=== PATIENT | male | born 2000 | race Two or more races ===

== ENCOUNTER 2025-02-14 17:54 | Emergency (ER) | payer SELFPAY ==
[~2025-02-14] VITALS: Ht 172.7 cm; Wt 81.1 kg
[2025-02-14] MEDS: TETRACAINE HCL 0.5% OPTH(EYE) SOLN 4ML RIGHTEYE ONE (19:52)
[2025-02-14] MEDS: FLUORESCEIN SOD OPTH TEST STRIP RIGHTEYE ONE (19:52)
[2025-02-14 19:53] VITALS: BP 135/79; PULSE 79; RESP 16; TEMP 97.6; O2SAT 97
[2025-02-14] MEDS ORDERED: ERY05OO OP (19:53)
--- NOTE | 2025-02-14 19:54 | ED.PDOC ---
Eye-HPI HPI Comments 24-year-old male presents to ER with right eye complaint x1 day. Patient reports that he has been experiencing redness, right eye irritation and 3/10 pain to right eye since 3 p.m. this afternoon after he was doing yard work. Denies use of medications for current symptoms and presents to ER ambulatory, in no distress. Denies use of contacts/glasses, vision changes, skin changes, known foreign body going into eye or any further symptoms/complaints Chief Complaint: Eye Problem Time Seen by MD: 18:13 Primary Care Provider: UNKNOWN Reviewed Notes: Nurses Notes, Medications, Allergies Allergies: Coded Allergies: NO KNOWN ALLERGIES (Unverified , 02/14/25) Home Meds Active Scripts Erythromycin (Erythromycin) 5 Mg/Gm Oin, 1 MG OP 6XD for 7 Days, #1 OIN 0 Refills Prov:CARL WESLEY 02/14/25 Information Source: Patient Mode of Arrival: Ambulatory Past Medical History PAST MEDICAL HISTORY: Denies Surgical History: Denies all surgeries Family History Family History: Unknown Social History Smoker: Non-Smoker Alcohol: Denies ETOH Use Drugs: Denies Drug Use Lives In: Home Constitutional: denies: chills, diaphoresis, fatigue, fever, malaise, sweats, weakness, others EENTM: reports: others (As stated in HPI) Respiratory: denies: cough, hemoptysis, orthopnea, SOB at rest, shortness of breath, SOB with excertion, stridor, wheezing, others Cardiovascular: denies: chest pain, dizzy spells, diaphoresis, Dyspnea on exertion, edema, irregular heart beat, left arm pain, lightheadedness, palpitations, PND, syncope, others Gastrointestinal: denies: abdomen distended, abdominal pain, blood streaked bowels, constipated, diarrhea, dysphagia, difficulty swallowing, hematemesis, melena, nausea, poor appetite, poor fluid intake, rectal bleeding, rectal pain, vomiting, others Genitourinary: denies: burning, dysuria, flank pain, frequency, hematuria, incontinence, penile discharge, penile sore, pain, testicle pain, testicle swelling, urgency, others Neurological: denies: dizziness, fainting, headache, left sided numbness, left sided weakness, numbness, paresthesia, pre-existing deficit, right sided numbness, right sided weakness, seizure, speech problems, tingling, tremors, weakness, others Musculoskeletal: denies: back pain, gout, joint pain, joint swelling, muscle pain, muscle stiffness, neck pain, others Integumetry: denies: bruises, change in color, change in hair/nails, dryness, laceration, lesions, lumps, rash, wounds, others Allergic/Immunocompromised: denies: Difficulty Healing, Frequent Infections, Hives, Itching, others Hematologic/Lymphatic: denies: anemia, blood clots, easy bleeding, easy bruising, swollen glands, others Endocrine: denies: excessive hunger, excessive sweating, excessive thirst, excessive urination, flushing, intolerance to cold, intolerance to heat, unexplained weight gain, unexplained weight loss, others Psychiatric: denies: anxiety, bipolar disorder, depression, hopeless, panic disorder, schizophrenia, sleepless, suicidal, others Physical Exam General Appearance: No Apparent Distress HEENT: PERRL/EOMI, Pharynx Normal, TMs Normal, Other (Wood's lamp examination right eye-subconjunctival injection and small corneal abrasion noted, no foreign body/drainage noted. No skin changes to right upper/lower eyelid noted.) Neck: Full Range of Motion, Non-Tender, Normal Respiratory: Chest Non-Tender, Lungs Clear, No Accessory Muscle Use, No Respiratory Distress, Normal Breath Sounds Cardiovascular: No Murmur, No Gallop, Regular Rate/Rhythm Breast Exam: Deferred Gastrointestinal: NOT DONE Genitalia: Deferred Pelvic: Deferred Rectal: Deferred Extremities: Normal capillary refill, Normal range of motion Neurologic: Alert, warehouse pricing and inventory clerk II-XII nml as Tested, No Motor Deficits, Normal Affect, Normal Mood, No Sensory Deficits Cerebellar Function: Normal Reflexes: Normal Skin: Dry, Normal Color, Warm Lymphatic: No Adenopathy Was a procedure done? Was a procedure done?: No Sedation Sedation?: No EENT DIFF Eye: Foreign Body-Corneal, Foreign Body-Lid, Globe Rupture, Orbital Cellulits, Periorbital Cellulits X-Ray, Labs, Meds, VS Vital Signs Date Time Temp Pulse Resp B/P (MAP) Pulse Ox O2 Delivery O2 Flow Rate FiO2 02/14/25 19:53 97.6 79 16 135/79 (97) 97 97.6 02/14/25 19:53 Room Air* 0 21 02/14/25 17:57 97.6 79 16 135/79 97 97.6 Current Medications Medications (Trade) Dose Ordered Sig/Padilla Route Start Time Stop Time Status Last Admin Tetracaine HCl (Tetracaine 0.5% Opth Soln) 1 drop ONCE ONCE RIGHTEYE 02/14/25 20:00 02/14/25 20:01 DC 02/14/25 19:52 Fluorescein Sodium (Ful-Preeti) 1 mg ONCE ONCE RIGHTEYE 02/14/25 20:00 02/14/25 20:01 DC 02/14/25 19:52 Fluorescein ophthalmic ordered Tetracaine ophthalmic ordered Advised to follow up with Ophthalmology in 3-4 days if symptoms do not improve Advised to follow up with PCP in 1-2 days Patient verbalized understanding and agreeable with current plan of care Advised to return to ER immediately if symptoms worsen Time of 1ST Reevaluation: 19:52 Reevaluation 1ST: N/A Patient Education/Counseling: Diagnosis, Treatment, Prognosis, Need For Follow Up Family Education/Counseling: No Family Present SEPSIS Sepsis Screen Date sepsis recognized/suspect: Feb 14, 2025 Time Sepsis recognized/suspect: 1756 Recent Procedure: No On Antibiotic Therapy: No Respiratory Rate >20: No Heart Rate >90: No Temp<36 C (96.8 F) or >38.3 C: No SBP <90 or MAP <65 mmHG: No New Acute Mental Status Change: No Is the patient on CPAP, BIPAP,: No Vital Signs Date Time Temp Pulse Resp B/P (MAP) Pulse Ox O2 Delivery O2 Flow Rate FiO2 02/14/25 19:53 97.6 79 16 135/79 (97) 97 97.6 02/14/25 19:53 Room Air* 0 21 02/14/25 17:57 97.6 79 16 135/79 97 97.6 Medications Medications Dose Ordered Sig/Padilla Route Start Time Stop Time Status Last Admin Dose Admin Fluorescein Sodium 1 mg ONCE ONCE RIGHTEYE 02/14/25 20:00 02/14/25 20:01 DC 02/14/25 19:52 Tetracaine HCl 1 drop ONCE ONCE RIGHTEYE 02/14/25 20:00 02/14/25 20:01 DC 02/14/25 19:52 Departure 1 Departure Time of Disposition: 20:15 Impression: Primary Impression: Corneal abrasion, right Qualified Codes: S05.01XA - Injury of conjunctiva and corneal abrasion without foreign body, right eye, initial encounter Disposition: HOME / SELF CARE / HOMELESS Condition: Stable e-Prescriptions Erythromycin (Erythromycin) 5 Mg/Gm Oin 1 MG OP 6XD for 7 Days, #1 OIN 0 Refills Prov: CARL WESLEY 02/14/25 Discharged With: Significant Other Critical Care Note Critical Care Time?: No Stability Stability form required: No Heart Score Heart Score: Heart Score Response (Comments) Value History N/A 0 EKG N/A 0 Age N/A 0 Risk Factors N/A 0 Troponin N/A 0 Total 0 CARL WESLEY Feb 14, 2025 19:54
== END 2025-02-14 20:20 | disposition home or self-care (01) ==
LOC: ER 17:54
DX: S05.01XA Injury of conjunctiva and corneal abrasion without foreign body, right eye, initial encounter (principal); X58.XXXA Exposure to other specified factors, initial encounter; Y93.9 Activity, unspecified; Y92.89 Other specified places as the place of occurrence of the external cause; Y99.8 Other external cause status